=== PATIENT | female | born 1985 | race Caucasian/White ===

== ENCOUNTER 2022-05-12 08:48 | Outpatient (CLI) | payer BC, SELFPAY ==
[2022-05-12 10:54] LABS: Free T4 Free Thyroxine* 0.87 ng/dL (0.70-1.85)
[2022-05-13 08:58] LABS: Thyroid Peroxidase (TPO) Ab 0.7 IU/mL (0.0-9.0)
== END 2022-05-12 08:49 | disposition home or self-care (01) ==
LOC: NFLDREF 08:48
PROVIDERS: PCP Family Medicine; Visit Provider Obstetrics & Gynecology
DX: N97.9 Female infertility, unspecified (principal); Z13.29 Encounter for screening for other suspected endocrine disorder
CPT/HCPCS: 84439; 84443; 86376

== ENCOUNTER 2024-09-20 15:45 | Outpatient (RCR) | payer BC, SELFPAY | END 2024-09-20 17:31 | disposition home or self-care (01) | PROVIDERS: PCP Family Medicine; Visit Provider Family Medicine | DX: M54.50 Low back pain, unspecified (principal); G56.01 Carpal tunnel syndrome, right upper limb; Z51.89 Encounter for other specified aftercare | CPT/HCPCS: 97033; 97035; 97110; 97140; 97163; 97165; 97530; 97535; X5282 ==